=== PATIENT | female | born 1975 | race Caucasian/White ===

== ENCOUNTER → 2016-05-15 | Outpatient (REF) | payer OTHER | LOC: M LAB REF 16:28 | PROVIDERS: ATTEND Internal Medicine | DX: E83.39 Other disorders of phosphorus metabolism (principal) ==

== ENCOUNTER → 2017-05-17 | Outpatient (REF) | payer OTHER ==
[2017-05-17 14:44] LABS: PHOSPHORUS LEVEL 2.4 MG/DL (2.5-4.9)
[2017-05-17 15:06] LABS: VITAMIN B12 LEVEL 551 PG/ML (247-911)
== END ==
LOC: M LAB REF 13:41
DX: E83.30 Disorder of phosphorus metabolism, unspecified (principal)
CPT/HCPCS: 84100

== ENCOUNTER → 2017-11-21 | Outpatient (REF) | payer OTHER ==
[2017-11-21 18:53] LABS: PROLACTIN 11.5 NG/ML
== END ==
LOC: M LAB REF 17:13
DX: N92.0 Excessive and frequent menstruation with regular cycle (principal)

== ENCOUNTER → 2017-12-17 | Outpatient (REF) | payer OTHER ==
[2017-12-17 22:00] LABS: APPEARANCE, URINE HAZY (CLEAR); BACTERIA, URINE AUTO NEGATIVE (NEGATIVE); BILIRUBIN, URINE AUTO NEGATIVE (NEGATIVE); BLOOD, URINE BLOOD 3+ (NEGATIVE); COLOR, URINE YELLOW (YELLOW); GLUCOSE, URINE (UA) AUTO NEGATIVE (NEGATIVE); KETONE, URINE AUTO NEGATIVE (NEGATIVE); LEUKOCYTE ESTERASE, URINE AUTO TRACE (NEGATIVE); MUCUS, URINE SMALL (NEGATIVE); NITRITE, URINE AUTO NEGATIVE (NEGATIVE); PROTEIN, URINE AUTO 1+ mg/dL (NEGATIVE); RBC, URINE AUTO 42 /HPF (0-3); SQUAMOUS EPITHELIAL CELL UR AU 1 /HPF (0-6); TRANSITIONAL EPITHELIAL AUTO 1 /HPF; UROBILINOGEN, URINE AUTO 0.2 mg/dL (0.0-2.0); WBC, URINE AUTO 20 /HPF (0-3)
== END ==
LOC: M LAB REF 21:47
DX: N39.0 Urinary tract infection, site not specified (principal)

== ENCOUNTER → 2018-04-10 | Outpatient (REF) | payer OTHER ==
[2018-04-10 19:05] LABS: APPEARANCE, URINE CLEAR (CLEAR); BACTERIA, URINE AUTO NEGATIVE (NEGATIVE); BILIRUBIN, URINE AUTO NEGATIVE (NEGATIVE); BLOOD, URINE BLOOD NEGATIVE (NEGATIVE); COLOR, URINE YELLOW (YELLOW); GLUCOSE, URINE (UA) AUTO NEGATIVE (NEGATIVE); KETONE, URINE AUTO NEGATIVE (NEGATIVE); LEUKOCYTE ESTERASE, URINE AUTO TRACE (NEGATIVE); MUCUS, URINE SMALL (NEGATIVE); NITRITE, URINE AUTO NEGATIVE (NEGATIVE); PROTEIN, URINE AUTO NEGATIVE (NEGATIVE); RBC, URINE AUTO 3 /HPF (0-3); SPECIFIC GRAVITY URINE AUTO 1.025 (1.002-1.035); SQUAMOUS EPITHELIAL CELL UR AU 2 /HPF (0-6); UROBILINOGEN, URINE AUTO 0.2 mg/dL (0.0-2.0); WBC, URINE AUTO 1 /HPF (0-3)
== END ==
LOC: M LAB REF 18:14
PROVIDERS: ATTEND Physician Assistant
DX: N39.0 Urinary tract infection, site not specified (principal)

== ENCOUNTER → 2018-12-30 | Outpatient (REF) | payer OTHER ==
[2018-12-30 16:57] LABS: HEMATOCRIT 40.3 % (36.0-47.0); HEMOGLOBIN 12.9 g/dl (12.0-15.5); MEAN CORPUSCULAR HEMOGLOBIN 29.1 pg (27.0-33.0); PLATELET COUNT, AUTOMATED 196 10^3/uL (150-450); RED BLOOD COUNT 4.43 10^6/uL (4.00-5.40); WHITE BLOOD COUNT 12.1 10^3/uL (4.0-10.0)
[2018-12-30 17:15] LABS: HCG, SERUM QUANTITATIVE 109787 MIU/ML
[2018-12-31 09:54] LABS: RUBELLA IgG QUALITATIVE IMMUNE (IMMUNE)
[2018-12-31 10:23] LABS: HIV 1&2 SCREEN CENTAUR NEGATIVE (NEGATIVE)
== END ==
LOC: M LAB REF 16:23
PROVIDERS: ATTEND Obstetrics & Gynecology
DX: Z32.01 Encounter for pregnancy test, result positive (principal)

== ENCOUNTER 2019-01-16 19:48 | Emergency (ER) | payer BC, OTHER ==
[~2019-01-16] VITALS: Ht 162.6 cm; Wt 77.3 kg
[2019-01-16] MEDS ORDERED: WELLTAB40 PO (19:57)
--- NOTE | 2019-01-16 21:39 | REPVR ---
PROCEDURE INFORMATION: Exam: US First Trimester, Transabdominal Exam date and time: 01/16/2019 9:16 PM Age: 43 years old Clinical history: Lmp or gestational age (in weeks): 12w 3d; Other: Vaginal bleeding; ; Additional info: 13 weeks, vaginal bleeding TECHNIQUE: Imaging protocol: Real-time transabdominal obstetrical ultrasound of the maternal pelvis and a first trimester , less than 14 weeks 0 days, with image documentation. COMPARISON: US PELVIC NON OB COMPLETE 09/09/2014 2:14 PM FINDINGS: GESTATION: Gestation: Single, live intrauterine is present. Heart rate: cardiac activity is present with a heart rate of 180 beats per minute. Placenta: No subchorionic bleed identified. BIOMETRY: Estimated gestational age: Estimated gestational age is 12 weeks, 3 days based on pole measurement of 5.8 cm. No gross anomalies are identified; however, a complete anatomical survey is not possible at this gestational age. A repeat scan at 19 and 20 weeks for a detailed anatomic survey is recommended. Estimated due date: The estimated date of delivery by ultrasound is 07/28/2019. MATERNAL: No free intraperitoneal fluid or adnexal mass is identified. IMPRESSION: Single, live intrauterine with an estimated gestational age of 12 weeks, 3 days. Electronically signed by: Conrado Hager On 01/16/2019 21:38:58 PM
[2019-01-16 22:09] LABS: BASO % 0.3 % (0.0-1.0); EOS # 0.3 10^3/uL (0.0-0.5); EOS % 2.4 % (0.0-3.0); HEMATOCRIT 41.5 % (36.0-47.0); HEMOGLOBIN 13.5 g/dl (12.0-15.5); LYMPH # 1.7 10^3/uL (1.5-5.0); LYMPH % 13.5 % (24.0-44.0); MEAN CORPUSCULAR HEMOGLOBIN 29.3 pg (27.0-33.0); MEAN CORPUSCULAR HGB CONC 32.5 g/dl (32.0-36.5); MEAN CORPUSCULAR VOLUME 90.2 fl (80.0-96.0); MONO # 0.8 10^3/uL (0.0-0.8); MONO % 6.2 % (0.0-5.0); NEUTROPHILS % 77.3 % (36.0-66.0); PLATELET COUNT, AUTOMATED 190 10^3/uL (150-450); WHITE BLOOD COUNT 12.9 10^3/uL (4.0-10.0)
[2019-01-16 23:05] LABS: BLOOD UREA NITROGEN 8 MG/DL (7-18); CALCIUM LEVEL 8.8 MG/DL (8.5-10.1); CARBON DIOXIDE LEVEL 26 MEQ/L (21-32); CHLORIDE LEVEL 108 MEQ/L (98-107); CREATININE FOR GFR 0.82 MG/DL (0.55-1.30); GLOMERULAR FILTRATION RATE > 60.0 (>58); GLUCOSE, FASTING 86 MG/DL (70-100); HCG, SERUM QUANTITATIVE 77924 MIU/ML; POTASSIUM SERUM 3.4 MEQ/L (3.5-5.1); SODIUM LEVEL 142 MEQ/L (136-145)
[2019-01-16 23:18] VITALS: BP 122/67
[2019-01-17 00:22] LABS: CHLAMYDIA DNA AMPLIFICATION NEGATIVE (NEGATIVE); GC DNA AMPLIFICATION NEGATIVE (NEGATIVE)
== END 2019-01-16 23:32 | disposition home or self-care (01) ==
LOC: M ED 19:48
DX: O20.9 Hemorrhage in early pregnancy, unspecified (principal); Z3A.12 12 weeks gestation of pregnancy; O99.341 Other mental disorders complicating pregnancy, first trimester; F33.9 Major depressive disorder, recurrent, unspecified; F41.9 Anxiety disorder, unspecified; Z79.899 Other long term (current) drug therapy; Z88.8 Allergy status to other drugs, medicaments and biological substances

== ENCOUNTER → 2019-02-24 | Outpatient (REF) | payer BC, OTHER ==
[~2019-02-24] MED LIST: WELLTAB40 PO
== END ==
LOC: M LAB REF 12:21
PROVIDERS: ATTEND Obstetrics & Gynecology
DX: Z34.02 Encounter for supervision of normal first pregnancy, second trimester (principal)

== ENCOUNTER → 2019-04-25 | Outpatient (CLI) | payer BC, OTHER ==
[2019-04-25 17:23] LABS: HEMATOCRIT 37.9 % (36.0-47.0); HEMOGLOBIN 12.4 g/dl (12.0-15.5); MEAN CORPUSCULAR HEMOGLOBIN 29.8 pg (27.0-33.0); MEAN CORPUSCULAR HGB CONC 32.7 g/dl (32.0-36.5); MEAN CORPUSCULAR VOLUME 91.1 fl (80.0-96.0); PLATELET COUNT, AUTOMATED 156 10^3/uL (150-450); RED BLOOD COUNT 4.16 10^6/uL (4.00-5.40); WHITE BLOOD COUNT 14.2 10^3/uL (4.0-10.0)
== END ==
LOC: M WUC 11:29
PROVIDERS: ATTEND Obstetrics & Gynecology
DX: Z34.02 Encounter for supervision of normal first pregnancy, second trimester (principal)

== ENCOUNTER → 2019-06-26 | Outpatient (REF) | payer OTHER | LOC: M LAB REF 12:05 | PROVIDERS: ATTEND Obstetrics & Gynecology | DX: Z34.03 Encounter for supervision of normal first pregnancy, third trimester (principal) ==

== ENCOUNTER → 2019-07-30 | Outpatient (CLI) | payer BC ==
[~2019-07-30] MED LIST changes: +OMEP40CA97 PO; +PRENTAB9 PO
--- NOTE | 2019-07-31 03:43 | REP ---
Clinical: well-being Comparison: None . Findings: Examination demonstrates a single live intrauterine in cephalic presentation. motion is identified by technologist. Placenta is noted anterior and grade I I without evidence for placenta previa or abruption. Amniotic fluid volume is low normal. Cervix appears closed. Gestational age by LMP 40 weeks 4 days with CALOS 07/26/2019 . Gestational age by current measurements 37 weeks 2 days with CALOS is 08/18/2019 . FHR equals 152 beats per minute. BPD 9.4 cm 38 weeks 3 days HC 34.2 cm 39 weeks 3 days AC 35.3 cm 39 weeks 1 day FL 6.9 cm 35 weeks 3 days HL 6.1 cm 35 weeks 0 days HC/AC ratio 0.97 Estimated weight 3452 grams. Biophysical profile score: 8/8 Amniotic fluid index: 9.4 cm (7.0 - 20.3) Umbilical cord SD ratio: 2.02 Impression: Single live advanced gestation in cephalic presentation. Biophysical profile score normal. Amniotic fluid volume is low normal range.
== END ==
LOC: M WHC 08:30
PROVIDERS: ATTEND Advanced Practice Midwife
DX: O09.513 Supervision of elderly primigravida, third trimester (principal); Z3A.40 40 weeks gestation of pregnancy

== ENCOUNTER 2019-07-31 16:17 | Inpatient (IN) | payer BC, OTHER ==
[2019-07-31] VITALS (23 sets, daily range): BP systolic 124–193; BP diastolic 58–111
[~2019-07-31] VITALS: Ht 162.6 cm; Wt 86.8 kg
[~2019-07-31 16:17] MED LIST changes: -OMEP40CA97 PO; -PRENTAB9 PO
[2019-07-31] MEDS ORDERED: OMEP40CA97 PO (16:35)
[2019-07-31] MEDS ORDERED: PRENTAB9 PO (16:35)
[2019-07-31] MEDS ORDERED: LACTATED RINGER'S 1000 ML IV STA (16:58)
[2019-07-31] MEDS: LR 1,000 ML IV SCH ×2 (17:25→19:45)
[2019-07-31 17:31] LABS: HEMOGLOBIN 13.4 g/dl (12.0-15.5); MEAN CORPUSCULAR HEMOGLOBIN 29.1 pg (27.0-33.0); MEAN CORPUSCULAR HGB CONC 33.5 g/dl (32.0-36.5); PLATELET COUNT, AUTOMATED 142 10^3/uL (150-450); WHITE BLOOD COUNT 12.7 10^3/uL (4.0-10.0)
[2019-07-31] MEDS ORDERED: AMPICILLIN SOD 2 GM in APPROPRIATE DILUENT 20 ML IV STA (17:39)
[2019-07-31 17:56] LABS: ALT/SGPT 19 U/L (12-78); BILIRUBIN,TOTAL 0.4 MG/DL (0.2-1.0); CREATININE FOR GFR 0.86 MG/DL (0.55-1.30); GLOMERULAR FILTRATION RATE > 60.0 (>58); LDH LACTATE DEHYDROGENASE 265 U/L (84-246); URIC ACID 5.7 MG/DL (2.6-6.0)
[2019-07-31 18:09] LABS: TOTAL PROTEIN,RANDOM URINE 99.2 MG/DL (0.0-12.0)
[2019-07-31] MEDS ORDERED: FENTANYL 2MCG/ML ROPIVACAINE 0.2% IN 0.9% NACL 100ML IVBAG As Ordered ONE (19:14)
[2019-07-31] MEDS ORDERED: OXYTOCIN 30 UNITS IN 0.9% NaCl 500ML IV BAG (J2590) As Ordered ONE (20:51)
[2019-07-31] MEDS ORDERED: ePHEDrine SULFATE 25 MG/5 ML(5MG/ML) SYRINGE IV PRN (21:15)
[2019-07-31] MEDS ORDERED: ONDANSETRON 4MG/2ML VIAL IV PRN (21:15)
[2019-07-31] MEDS ORDERED: REFRIGERATOR IV KEYS XX PRN (21:15)
[2019-07-31] MEDS ORDERED: LACTATED RINGER'S 1000 ML IV PRN (21:15)
[2019-07-31] MEDS ORDERED: EPIDURAL COMMENT XX SCH (21:15)
[2019-07-31] MEDS ORDERED: diphenhydrAMINE 50MG/ML VIAL (J1200) IV PRN (21:15)
[2019-07-31] MEDS ORDERED: NALOXONE INJ 0.4MG/1ML VIAL (J2310 PER 1MG) IV PRN (21:15)
[2019-07-31] MEDS ORDERED: EPIDURAL/PCA KEYS XX PRN (21:15)
[2019-07-31] MEDS ORDERED: FENTANYL/ROPIVACAINE/NACL BAG 100 ML EPIDURAL SCH (21:15)
[2019-07-31] MEDS ORDERED: OXYTOCIN DRIP 30 UNITS in IV 1 EA IV SCH (21:30)
[2019-07-31] MEDS ORDERED: AMPICILLIN SOD 1 GM in APPROPRIATE DILUENT 10 ML IV SCH (22:00)
[2019-08-01] VITALS (14 sets, daily range): BP systolic 125–196; BP diastolic 59–95
[2019-08-01] MEDS ORDERED: OXYTOCIN DRIP 30 UNITS in IV 1 EA IV SCH (03:23)
[2019-08-01 03:30] LABS: CORD GAS HCO3 A 24.8 MEQ/L; CORD GAS O2 SAT A 25.2 %; CORD GAS PCO2 A 61.3 mmHg; CORD GAS PH A 7.225 UNITS; CORD GAS PO2 A 15.6 mmHg; CORD GAS SBC A 19.5 MEQ/L; CORD GAS TCO2 A 26.7 MEQ/L
[2019-08-01] MEDS ORDERED: METHYLERGONOVINE MALEATE 0.2 MG TAB PO PRN (03:30)
[2019-08-01] MEDS ORDERED: IBUPROFEN 800 MG TAB PO PRN (03:30)
[2019-08-01] MEDS ORDERED: DIBUCAINE 1% OINTMENT 30GM TOP PRN (03:30)
[2019-08-01] MEDS ORDERED: ACETAMINOPHEN TAB 650MG DOSE (2X325MG) PO PRN (03:30)
[2019-08-01] MEDS ORDERED: IBUPROFEN 600MG TAB PO PRN (03:30)
[2019-08-01] MEDS ORDERED: DOCUSATE SODIUM 100 MG CAP PO PRN (03:30)
[2019-08-01] MEDS ORDERED: MEASLES,MUMPS,RUBELLA VACCINE INJ (MMR-II) (90707) SC SCH (03:30)
[2019-08-01] MEDS ORDERED: RHOGAM 300 MCG (1500 IU) INJ (J2790) IM SCH (03:30)
[2019-08-01 03:31] LABS: CORD GAS ABE V -2.9; CORD GAS O2 SAT V 36.7 %; CORD GAS PCO2 V 49.6 mmHg; CORD GAS PH V 7.302 UNITS; CORD GAS PO2 V 18.5 mmHg; CORD GAS SBC V 20.6 MEQ/L; CORD GAS TCO2 V 25.5 MEQ/L
[2019-08-01] MEDS: PRENATAL VITAMINS CHEWABLE TABLET PO SCH (08:54)
--- NOTE | 2019-08-01 09:39 | HPE ---
DATE OF ADMISSION: 07/31/2019 Candie is a 44-year-old female, 1, para 0, who was admitted at 39-5/7 weeks gestation with gross rupture of membranes, meconium-stained fluid. She was then examined, found to be in early labor. At this point, a decision was made for admission. Her record reviewed. Blood type is O positive. Rubella immune, hepatitis negative, HIV negative, GC/chlamydia negative. 1-hour sugar testing was within normal limits. Her group B streptococcus (GBS) is positive. PAST MEDICAL HISTORY: Denies. PAST SURGICAL HISTORY: Patient had tonsillectomy as a child and ovarian cystectomy. MEDICATION: vitamin. ALLERGIES: To SULFA DRUGS. REVIEW OF SYSTEMS: Unremarkable. PHYSICAL EXAMINATION: HEENT: Grossly within normal limits. Abdomen: Soft, nontender, nondistended. Extremities: No clubbing, cyanosis, or edema. Vaginal exam: Gross rupture of membranes, meconium-stained fluid. Cervix is 2 cm dilated, 80% effaced. Fetus at -3 station in vertex position. Tracing reviewed. Category 1 tracing. ASSESSMENT: Intrauterine at 39 and 5 weeks gestation with gross rupture of membranes, meconium-stained fluid. PLAN: Admit patient to labor and delivery. Routine labs sent. Induction process discussed with the patient. We will continue to monitor. Pain management discussed. Patient opts for an epidural.
[2019-08-01 10:46] LABS: HEMATOCRIT 32.8 % (36.0-47.0); MEAN CORPUSCULAR HEMOGLOBIN 29.6 pg (27.0-33.0); MEAN CORPUSCULAR HGB CONC 33.5 g/dl (32.0-36.5); MEAN CORPUSCULAR VOLUME 88.2 fl (80.0-96.0); PLATELET COUNT, AUTOMATED 121 10^3/uL (150-450); RED BLOOD COUNT 3.72 10^6/uL (4.00-5.40); WHITE BLOOD COUNT 20.6 10^3/uL (4.0-10.0)
[2019-08-01 11:01] LABS: ALT/SGPT 13 U/L (12-78); BILIRUBIN,TOTAL 0.5 MG/DL (0.2-1.0); CREATININE FOR GFR 0.88 MG/DL (0.55-1.30); GLOMERULAR FILTRATION RATE > 60.0 (>58); LDH LACTATE DEHYDROGENASE 251 U/L (84-246); URIC ACID 6.4 MG/DL (2.6-6.0)
[2019-08-01] MEDS: ACETAMINOPHEN 500 MG TAB PO PRN ×2 (15:24→21:26)
[2019-08-02 02:00] VITALS: BP 133/73
[2019-08-02 06:00] VITALS: BP 117/60
[2019-08-02] MEDS: PRENATAL VITAMINS CHEWABLE TABLET PO SCH (08:52)
[2019-08-02] MEDS: ACETAMINOPHEN 500 MG TAB PO PRN (08:52)
[2019-08-02] MEDS ORDERED: BOOSTRIX/ADACEL VACCINE (DIPHTH/PERTUSS/ACELL/TETANUS) 0.5ML SYR IM ONE (09:00)
[2019-08-02 10:00] VITALS: BP 123/64
--- NOTE | 2019-08-04 17:25 | DN ---
DATE OF DELIVERY: 08/01/2019 DELIVERY NOTE: Candie is a 44-year-old female, 1, para 0, who was admitted at 39-5/7 weeks gestation after presenting with gross rupture of membrane, meconium-stained fluid. She underwent Pitocin augmentation after an epidural. She then delivered a live female infant in occiput anterior position. 8/8. weight 7 pounds 5 ounces. Placenta delivered manually intact. Three-vessel cord. First-degree midline perineal laceration noted, which was repaired using #2-0 chromic. Estimated blood loss 300 mL. Both mother and baby in stable condition.
== END 2019-08-02 13:33 | disposition home or self-care (01) | DRG 560 ==
LOC: M LDO 16:17 → M LDI 16:45 → M OBS 08-01 05:43
PROVIDERS: ADMIT Obstetrics & Gynecology; ATTEND Obstetrics & Gynecology
PROC: 10E0XZZ Delivery of Products of Conception, External Approach (ICD-10-PCS; principal; 2019-08-01)
PROC: 0HQ9XZZ Repair Perineum Skin, External Approach (ICD-10-PCS; 2019-08-01)
DX: O77.0 Labor and delivery complicated by meconium in amniotic fluid (principal); O99.824 Streptococcus B carrier state complicating childbirth; Z37.0 Single live birth; Z3A.39 39 weeks gestation of pregnancy; O09.523 Supervision of elderly multigravida, third trimester; O70.0 First degree perineal laceration during delivery

== ENCOUNTER 2020-06-14 00:12 | Emergency (ER) | payer BC, OTHER ==
[~2020-06-14] VITALS: Ht 162.6 cm; Wt 145.0 kg
[~2020-06-14 00:12] MED LIST changes: +OMEP40CA97 PO; +PRENTAB9 PO
[2020-06-14] MEDS ORDERED: NS 1,000 ML IV ONE (00:40)
[2020-06-14 05:45] VITALS: BP 111/61
--- NOTE | 2020-06-14 13:25 | ECGEPIP ---
[facility] - ED Test Date: 2020-06-14 Pat Name: YG BALL Department: Room: - Gender: Female [employer]: CY : 1975 Requested By: FAUSTINO SULLIVAN Order Number: [id number] Reading MD: Sohail Singh Measurements Intervals [place] Rate: 94 P: 63 CO: 180 QRS: 12 QRSD: 90 T: 9 QT: 348 QTc: 435 Interpretive Statements Normal sinus rhythm BASELINE ARTIFACT AFFECTS INTERPRETATION Electronically Signed on 06-14-2020 13:25:13 EDT by Sohail Singh
== END 2020-06-14 05:55 | disposition home or self-care (01) ==
LOC: M ED 00:12
DX: F12.188 Cannabis abuse with other cannabis-induced disorder (principal); F41.9 Anxiety disorder, unspecified; R42 Dizziness and giddiness; Z88.6 Allergy status to analgesic agent; Z88.8 Allergy status to other drugs, medicaments and biological substances

== ENCOUNTER → 2020-10-07 | Outpatient (CLI) | payer BC ==
[~2020-10-07] MED LIST changes: +OMEP40CA4 PO; -OMEP40CA97 PO
--- NOTE | 2020-10-07 16:09 | REP ---
INDICATION: Z12.31 SCREENING MAMMO. COMPARISON: 03/14/2018 the only prior TECHNIQUE: Digital screening mammography was carried out bilaterally in the CC and MLO projections using both 2D and 3D modalities and compared to the prior exam. By history, the patient has no complaints of a palpable breast abnormality or other significant breast complaints. FINDINGS: Breasts are unchanged in size and shape. The breast parenchymal density has increased compared to the prior exam. Dense heterogenous somewhat nodular fibroglandular elements are seen bilaterally to such a degree that the sensitivity of the mammogram in detecting cancer is decreased. In the inner quadrant of the right breast near the 3 o'clock position and in the extreme posterior retroglandular adipose tissue on the MLO view there is a christiano density. In the upper aspect of the left breast near the 12 o'clock position there is a potential christiano density. This is in a retroareolar location. No other suspicious features are seen in either breast. There are no suspicious calcifications. There is no skin thickening or nipple retraction. The Volpara volumetric breast density pattern is C. IMPRESSION: BIRADS/ACR category 0 bilateral mammogram. Potential christiano densities seen in each breast as described above and for which diagnostic digital DBT spot compression views are recommended in the CC and MLO projections along with diagnostic ultrasonography if indicated. This patient's [facility]uz[facility] lifetime breast cancer risk assessment score is 15.6%. This mammogram was interpreted with the aid of an FDA-approved computer-aided detection system. The patient states she had a clinical breast exam in August 2020. The patient letter being requested is M0. RECOMMENDATION: As above <Electronically signed by Javon Good > 10/07/20 [id number]
== END ==
LOC: M WHC 15:15
PROVIDERS: ATTEND Obstetrics & Gynecology
DX: R92.2 Inconclusive mammogram (principal)

== ENCOUNTER → 2020-11-24 | Outpatient (CLI) | payer BC, OTHER ==
--- NOTE | 2020-11-24 11:13 | REP ---
INDICATION: BILATERAL ADD VIEWS. Screening mammography October 07, 2020 was BI-RADS category 0 incomplete because of a potential christiano density seen in each breast. COMPARISON: Comparison is also made with prior mammography from March 14, 2018. TECHNIQUE: Magnified focal spot-compression CC MLO and non magnified true mL views are obtained. 3D tomography is deployed in the mL projection. Targeted bilateral sonography is carried out. FINDINGS: Scattered fibroglandular elements are seen as on prior studies. The craniocaudal view of the right breast confirms the presence of a well-circumscribed nodule in the medial and posterior aspect of the right breast. 5 mm in diameter. This was not displayed on the orthogonal views. In the left breast superior and slightly medially in the anterior 3rd there is a oval-shaped nodular density corresponding to the 3D tomography findings from the screening study October 07, 2020.4 mm in diameter. No other suspicious mammographic finding. The Volpara volumetric breast density pattern is B. Targeted bilateral sonography: Mildly heterogeneous fibroglandular background echotexture is seen. In the right breast at the 3:30 o'clock position, 4.6 cm from the nipple, there is a 0.3 by 0.2 x 0.3 cm cyst. Also at 4 o'clock position there is a 0.8 x 0.7 x 0.4 cm complex cyst. This is felt to account for the mammographic opacity. No suspicious sonographic features on the right. On the left in the retroareolar region there is a 0.4 x 0.4 x 0.3 cm cyst. This is felt to account for the left-sided mammographic opacity.. IMPRESSION: BIRADS/ACR category 2 benign left and right breast mammographic and sonographic findings.. This patient's [facility] lifetime breast cancer risk assessment score is 15.6%. This mammogram was interpreted with the aid of an FDA-approved computer-aided detection system. The patient states she had a clinical breast exam in 2 months ago. The patient letter being requested is M1. RECOMMENDATION: Repeat screening mammography recommended 1 year (for women over 40). <Electronically signed by Tato Caicedo > 11/24/20 [id number]
== END ==
LOC: M WHC 08:55
PROVIDERS: ATTEND Obstetrics & Gynecology
DX: N63.10 Unspecified lump in the right breast, unspecified quadrant (principal); Z12.31 Encounter for screening mammogram for malignant neoplasm of breast
CPT/HCPCS: 76642; 77066; G0279

== ENCOUNTER → 2021-04-24 | Outpatient (REF) | payer BC, OTHER ==
[2021-04-24 12:35] LABS: BACTERIA, URINE AUTO NEGATIVE (NEGATIVE); MUCUS, URINE SMALL (NEGATIVE); RBC, URINE AUTO 1 /HPF (0-3); SQUAMOUS EPITHELIAL CELL UR AU 0 /HPF (0-6); WBC, URINE AUTO 1 /HPF (0-3)
== END ==
LOC: M LAB REF 12:04
PROVIDERS: ATTEND Internal Medicine
DX: R31.9 Hematuria, unspecified (principal)

== ENCOUNTER → 2021-10-27 | Outpatient (CLI) | payer OTHER, BC | LOC: M WHC 10:22 | PROVIDERS: ATTEND Obstetrics & Gynecology | DX: Z12.31 Encounter for screening mammogram for malignant neoplasm of breast (principal) ==

== ENCOUNTER → 2022-10-25 | Outpatient (REF) | payer OTHER, BC ==
[2022-10-25 13:43] LABS: APPEARANCE, URINE CLEAR (CLEAR); BACTERIA, URINE AUTO 1+ (NEGATIVE); BILIRUBIN, URINE AUTO NEGATIVE (NEGATIVE); BLOOD, URINE BLOOD 1+ (NEGATIVE); COLOR, URINE YELLOW (YELLOW); GLUCOSE, URINE (UA) AUTO NEGATIVE (NEGATIVE); KETONE, URINE AUTO TRACE mg/dL (NEGATIVE); LEUKOCYTE ESTERASE, URINE AUTO NEGATIVE (NEGATIVE); MUCUS, URINE SMALL (NEGATIVE); NITRITE, URINE AUTO NEGATIVE (NEGATIVE); PROTEIN, URINE AUTO 1+ mg/dL (NEGATIVE); RBC, URINE AUTO 3 /HPF (0-3); SPECIFIC GRAVITY URINE AUTO 1.027 (1.002-1.035); SQUAMOUS EPITHELIAL CELL UR AU 0 /HPF (0-6); UROBILINOGEN, URINE AUTO 0.2 mg/dL (0.0-2.0); WBC, URINE AUTO 1 /HPF (0-3)
[2022-10-25 14:17] LABS: C REACTIVE PROTEIN QUANTITATIV 1.9 MG/DL (<1.0)
[2022-10-25 14:18] LABS: RHEUMATOID FACTOR QUANT 6.8 IU/ML (<14)
[2022-10-27 23:11] LABS: ANTINUCLEAR ANTIBODIES DIRECT Negative (Negative); CYCLIC CITRULLINATED PEPTIDE 5 units (0-19)
== END ==
LOC: M LAB REF 12:06
PROVIDERS: ATTEND Internal Medicine
DX: R31.9 Hematuria, unspecified (principal); M25.50 Pain in unspecified joint

== ENCOUNTER → 2022-10-29 | Outpatient (CLI) | payer BC, OTHER | LOC: M WHC 07:49 | PROVIDERS: ATTEND Obstetrics & Gynecology | DX: Z12.31 Encounter for screening mammogram for malignant neoplasm of breast (principal) ==

== ENCOUNTER → 2022-11-26 | Outpatient (REF) | payer OTHER, BC | LOC: M LAB REF 11:35 | PROVIDERS: ATTEND Internal Medicine | DX: M79.604 Pain in right leg (principal); M25.511 Pain in right shoulder ==

== ENCOUNTER → 2022-12-14 | Outpatient (CLI) | payer BC, OTHER | LOC: M WUC 08:10 | PROVIDERS: ATTEND Internal Medicine | DX: M79.604 Pain in right leg (principal) ==

== ENCOUNTER → 2023-11-06 | Outpatient (CLI) | payer BC | LOC: M WHC 08:14 | PROVIDERS: ATTEND Obstetrics & Gynecology | DX: Z12.31 Encounter for screening mammogram for malignant neoplasm of breast (principal) ==

== ENCOUNTER → 2024-11-09 | Outpatient (CLI) | payer BC | LOC: M WHC 08:13 | PROVIDERS: ATTEND Obstetrics & Gynecology | DX: Z12.31 Encounter for screening mammogram for malignant neoplasm of breast (principal); R92.323 Mammographic fibroglandular density, bilateral breasts ==